=== PATIENT | male | born 1980 | race Two or more races ===

== ENCOUNTER 2022-07-24 02:38 | Emergency (ER) | payer OTHER ==
[~2022-07-24] VITALS: Ht 185.4 cm; Wt 108.9 kg
--- NOTE | 2022-07-24 03:00 | NUR ---
Dr. Alonso at bedside. MSE in progress.
--- NOTE | 2022-07-24 04:21 | NUR ---
Dopper completed on lower extremities
[2022-07-24 04:55] LABS: CARBON DIOXIDE 29 mmol/L (21-32); CHLORIDE 102 mmol/L (98-107); CREATININE 1.1 mg/dL (0.6-1.3); GLUCOSE 100 mg/dL (74-106); HEMATOCRIT 32.5 % (36.7-47.1); MEAN CORPUSCULAR HEMOGLOBIN 28.9 uug (23.8-33.4); MEAN CORPUSCULAR VOLUME 84.7 fL (73.0-96.2); PLATELET COUNT (AUTO) 267 K/uL (152-348); UREA NITROGEN, BLOOD 23 mg/dL (7-18)
--- NOTE | 2022-07-24 05:21 | NUR ---
:BEKAH AT B/S SPOKED WITH PATIENT AND WITH DISCHARGE INSTRUCTION .
--- NOTE | 2022-07-24 05:23 | NUR ---
Patient discharged to home in stable condition.AMBULATORY WENT HOME WITH ALL BELONGINGS. Written and verbal after care instructions given. Patient verbalizes understanding of instructions. Stressed follow up or return to ER for worsening s/s.
[2022-07-24 05:27] VITALS: BP 120/80
== END 2022-07-24 05:29 | disposition home or self-care (01) ==
LOC: ER 03:27
DX: R60.0 Localized edema (principal); I89.0 Lymphedema, not elsewhere classified; F17.210 Nicotine dependence, cigarettes, uncomplicated; Z86.718 Personal history of other venous thrombosis and embolism
CPT/HCPCS: 36415; 71045; 84484; 85025; 93005; A4663